=== PATIENT | female | born 1990 | race Caucasian/White ===

== ENCOUNTER 2023-12-26 10:10 | Emergency (ER) | payer OTHER, SELFPAY ==
[2023-12-26 10:10] VITALS: BMI 54.8
[2023-12-26 10:19] VITALS: BP 157/95
--- NOTE | 2023-12-26 10:52 | ED.GENMED ---
History of Present Illness
General
Chief Complaint: Chest Pain
Time Seen by Provider: 12/26/23 10:52
Travel History
Have you had any contact with someone who has COVID-19?: No
Do you have any symptoms of coronavirus? Fever > 100 degrees, chills, cough, shortness of breath, sore throat, loss of taste or smell, muscle aches, or headache?: No
History of Present Illness
History of Present Illness:
HPI: Patient presents with chest discomfort described as tightness. The symptoms started yesterday. She has had a history of PE in the remote past diagnosed in [place] that was unexplained. She no longer is on anticoagulation but does take baby
aspirin on most days. She did take baby aspirin today. The pain seems to worsen with certain position changes including laying down flat. She has no shortness of breath unlike when she had a PE in the past.
EXAM:
GENERAL: Well appearing in no distress
HEENT: Moist oral mucosa
CARDIOVASCULAR: No murmurs, normal heart rate and rhythm, moderate anterior chest wall tenderness
PULMONARY: No respiratory distress, breath sounds are clear and equal
ABDOMEN: Soft with no peritoneal signs, no tenderness, elevated BMI
NEUROLOGIC: Excellent strength all extremities, no coordination deficits
PSYCHIATRIC: Appropriate mental status, normal insight and judgement
EXTREMITIES: Nontender, no edema, moves all extremities equally
SKIN: No rash, no lesions
ED COURSE:
11 AM: I initially evaluated patient
NUMBER AND COMPLEXITY OF PROBLEMS ADDRESSED AT THE ENCOUNTER
� Chronic conditions affecting care: Has had PE, gastric bypass in 2008, PTSD, anxiety/depression
� Acute Exacerbation and/or Progression of Chronic Illness: This is an acute problem
� Differential Diagnosis includes: Musculoskeletal chest wall pain, anxiety, anemia, ACS, PE
AMOUNT AND/OR COMPLEXITY OF DATA TO BE REVIEWED AND ANALYZED
� I performed an independent evaluation of and my interpretation is:
EKG: Sinus 84, no acute ST abnormality, no old to compare
CT:
X-rays: Chest x-ray shows no acute abnormality
Laboratory Studies: Mild white count elevation at 12.1, hemoglobin 11.3, troponin negative, hCG negative, D-dimer reassuring
Other:
� Review of other/old records: No old records available for review in [facility]
� Clinical information was obtained by an independent historian: None needed
� Prescriptions/Medications Considered but not given:
� Further testing considered but not performed:
RISK OF COMPLICATIONS AND/OR MORBIDITY OR MORTALITY OF PATIENT MANAGEMENT
� Social determinants of health affecting care: Lives at home
� Discussion with other providers:
� Escalation of care including admission/observation vs risk of discharge considered: Initial EKG unremarkable. Chest pain since yesterday described as tightness which is reproducible on examination. Given history of PE, will
obtain D-dimer however I have relatively low suspicion she has no shortness of breath. Lab work unremarkable. She may have musculoskeletal chest wall pain however we will hold off on NSAIDs as she does have a history of gastric bypass. She
appears fairly comfortable on reassessment at 12:50 PM
Phy Exam
Physical Exam
Physical Exam:
See HPI
Scores
Heart Score for Chest Pain Patients
STEMI patient?: Not applicable
Course
Orders/Labs/Results
Orders:
Orders
12/26/23 10:25
ECG [Electrocardiogram (*1)] Urgent
Reason for Study: Chest Pain
EKG- Treatment ONCE
12/26/23 11:06
Test Result ONCE
CR Chest - 2 Views Urgent
Comment:
Reason For Exam: pain
12/26/23 11:46
Complete Blood Count/With Diff Urgent
Comprehensive Metabolic Panel Urgent
D-Dimer Urgent
HCG, Serum Qualitative Screen Urgent
Troponin I Urgent
Abnormal Lab Results
12/26/23
11:46
WBC 12.1 H 10^3/uL
(4.8-10.8)
Hgb 11.3 L g/dL
(12.0-16.0)
Hct 34.8 L %
(37.0-47.0)
MCV 79.8 L fL
(81.0-99.0)
MCH 25.9 L pg
(27.0-31.0)
MCHC 32.5 L g/dL
(33.0-37.0)
RDW 15.3 H %
(11.5-14.5)
Absolute Neuts (auto) 8.3 H 10^3/uL
(1.4-6.5)
Absolute Monos (auto) 1.1 H 10^3/uL
(0.1-0.6)
Monocytes % 9.4 H %
(1.7-9.3)
Creatinine 0.4 L mg/dL
(0.6-1.0)
Total Protein 6.1 L g/dl
(6.3-8.2)
12/26/23 11:46
12/26/23 11:46
Vital Signs
Initial and Last Documented VS:
Initial Vital Signs
Temp Pulse Resp BP Pulse Ox
98.5 F 82 18 157/95 98
12/26/23 10:19 12/26/23 10:19 12/26/23 10:19 12/26/23 10:19 12/26/23 10:19
Last Documented Vital Signs
Temp Pulse Resp BP Pulse Ox
98.5 F 77 17 157/95 96
12/26/23 10:19 12/26/23 12:30 12/26/23 12:30 12/26/23 10:19 12/26/23 12:30
*Critical Care Note
Total Time (30-74mins, 75-104mins- exclusive of procedures): Not Applicable
ED Attending Note
-
Portions of this chart may have been created with voice recognition software.� Occasional wrong word or��sound alike� substitutions may have occurred due to the inherent limitations of voice recognition software.
Discharge Plan
Departure
Patient Disposition: Home (Routine Discharge)
Date of Disposition: 12/26/23
Time of Disposition: 12:55
Patient with high blood pressure during this ER visit?: Yes
Discharge Problem:
Chest pain
Instructions: Chest Pain CBC Follow Up
Referrals:
Soni Martins DO [Family Provider] -
Jona Lovell MD [Active] - Follow up in 2-3 days
Activity Restrictions/Additional Instructions:
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 Please follow-up with them. Cardiac blood work was normal which shows no sign of heart attack and no sign of blood clot. The chest x-ray showed a little bit of scoliosis but
otherwise was normal. Return here if worse. Tylenol would be safest for pain.
Interventions
Interventions:
*Risk Screen - Suicide Last Done: 12/26/23 10:19
*Neglect/Abuse Screening Last Done: 12/26/23 10:19
ED- Fall Risk Assessment Last Done: 12/26/23 12:35
*ED COVID-19 Vaccine History Last Done: 12/26/23 10:19
ED- Cardiac Assessment Last Done: 12/26/23 12:35
[2023-12-26 12:08] LABS: % Basophils 0.2 % (0-2); % Eosinophils 0.3 % (0-6); % Immature Granulocytes 0.2 % (0-0.5); % Monocytes 9.4 % (1.7-9.3); % Neutrophils 68.9 % (42.2-75.2); Absolute Lymphocytes 2.5 10^3/uL (1.2-3.4); Absolute Monocytes 1.1 10^3/uL (0.1-0.6); Absolute Neutrophils 8.3 10^3/uL (1.4-6.5); Hematocrit 34.8 % (37.0-47.0); Hemoglobin 11.3 g/dL (12.0-16.0); Mean Corp Hgb Conc. 32.5 g/dL (33.0-37.0); Mean Corpuscular Hgb 25.9 pg (27.0-31.0); Mean Corpuscular Volume 79.8 fL (81.0-99.0); Mean Platelet Volume 9.5 fL (7.4-10.4); Nucleated Red Blood Cells % 0 %; Platelet Count 308 10^3/uL (130-400); Red Blood Cell Count 4.36 10^6/uL (4.20-5.40); Red Cell Dist. Width 15.3 % (11.5-14.5); White Blood Cell Count 12.1 10^3/uL (4.8-10.8)
[2023-12-26 12:16] LABS: D-Dimer 0.35 ug/mlFEU (0.00-0.50)
[2023-12-26 12:29] LABS: HCG, Serum Qualitative Screen Negative
[2023-12-26 12:32] LABS: Troponin I < 0.012 ng/ml
[2023-12-26 12:33] LABS: ALT (SGPT) 18 U/L (0-35); AST (SGOT) 26 U/L (14-36); Albumin 3.8 g/dl (3.5-5.0); Alkaline Phosphatase 108 U/L (38-126); Blood Urea Nitrogen 8 mg/dl (7-17); Calcium 8.7 mg/dl (8.4-10.2); Carbon Dioxide 24 mmol/L (22-30); Chloride 104 mmol/L (98-107); Estimated Creatinine Clearance > 125 ml/min; Glucose 98 mg/dl (70-99); Potassium 3.7 mmol/L (3.5-5.1); Sodium 137 mmol/L (135-145); Total Bilirubin 1.2 mg/dl (0.2-1.3); Total Protein 6.1 g/dl (6.3-8.2); eGFR > 60.00
== END 2023-12-26 13:10 | disposition home or self-care (01) ==
LOC: EMR 10:10
PROVIDERS: EMERGENCY PHYSICIAN Emergency Medicine; FAMILY PHYSICIAN Family Medicine
DX: R07.89 Other chest pain (principal); R03.0 Elevated blood-pressure reading, without diagnosis of hypertension; Z86.711 Personal history of pulmonary embolism
CPT/HCPCS: 99285; 71046; 80053; 84484; 84703; 85025; 85379; 93005